=== PATIENT | male | born 1945 | race Caucasian/White ===

== ENCOUNTER 2016-09-04 09:31 | Emergency (ER) | payer MEDICARE, OTHER ==
[2016-09-04 11:04] VITALS: BP 158/94
[2016-09-04] MEDS ORDERED: Acetaminophen/HYDROcodone 325-10 MG Tab PO ONE (11:34)
--- NOTE | 2016-09-07 08:24 | ER ---
Date of Service: 09/04/2016 SUBJECTIVE: Neville presents to the emergency room with complaints of pain to his right distal ankle. The patient states that he was in his basement and apparently was walking and injured at [facility], however, he is unaware specifically of what happened. 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 The patient states that he has minimal sensation in the foot and ankle. Initially experienced very minor discomfort. He states that he noticed some weakness in the ankle as well as edema to the ankle. PAST MEDICAL HISTORY: 1. Dyslipidemia. 2. Hypertension. 3. Osteoarthritis. 4. History of chronic low back pain. 5. History of kidney stones. MEDICATIONS: 1. Tramadol. 2. Zocor. 3. Advil. 4. Hydrochlorothiazide. 5. Aspirin. ALLERGIES: Betadine. REVIEW OF SYSTEMS: The patient denies any injury other than was isolated to his right ankle. He does complain again of weakness to the joints. He states that he does have chronic paresthesia to the right lower extremity. PHYSICAL EXAMINATION: General: This is a 71-year-old male patient, who is in no acute distress. Vital Signs: Initially, blood pressure is 173/103. This was rechecked and was found to be 158/94, temperature is 36.6, pulse rate is 61, respiratory rate 16, and O2 saturations 97%. Skin: Warm, pink, and dry. Lungs: Clear to auscultation. Heart: Regular rate and rhythm. Musculoskeletal: He does have some crepitus in the area of the distal tibia/fibula. There is moderate amount of edema noted to the ankle joint. Neurovascular, circulation noted to the right foot and ankle. He does have evidence of foot drop. He does have lack of sensation to the foot and ankle on the right side. RADIOGRAPHIC DATA: Right ankle series was obtained. He did have evidence of a distal tibia/fibula fracture. No dislocation noted. The fractures do appear to be minimally displaced. HOSPITAL COURSE: The patient was placed in a posterior short leg splint to the right lower extremity. The patient had been given [place] 10/325 tablets prior to this. The patient did report improvement after the pain pill as well as following splinting. The patient tolerated this well. He remained stable in my care in the emergency room. ASSESSMENT: Right distal tibia-fibula fracture. PLAN: I did speak with Dr. Hernandez, the orthopedist on-call at [place]. He stated that the patient could either come down today and be evaluated or follow up in the clinic on Wednesday. I discussed this with the patient and his daughter. Patient's daughter states that the patient is extremely noncompliant. We did get him crutches to do crutch teaching and he was very weak, unable to use the crutches properly and was using his right lower extremity to help to get around as well. Decision was made then for the patient to travel to [facility] in [place] via private vehicle for further evaluation and treatment. The surgeon coming on to relieve Dr. Hernandez stated that he likely would operate either today or tomorrow. To note, I also spoke with Dr. Goss, the hospitalist, who stated that he would accept the patient in transfer and stated that the patient could be a direct admit. I did discuss doing preoperative lab studies, but he stated that they would perform these in [place]. All questions were answered. The patient did sign EMTALA form. MWK: 09/04/2016 13:14:24 MODL: 09/04/2016 20:45:55 /[id number]
== END 2016-09-04 11:45 | disposition short-term general hospital (02) ==
LOC: VM.ED 09:31
DX: S82.301A Unspecified fracture of lower end of right tibia, initial encounter for closed fracture (principal); S82.831A Other fracture of upper and lower end of right fibula, initial encounter for closed fracture; I10 Essential (primary) hypertension; M19.90 Unspecified osteoarthritis, unspecified site; E78.5 Hyperlipidemia, unspecified; Z87.442 Personal history of urinary calculi; Z88.8 Allergy status to other drugs, medicaments and biological substances; X58.XXXA Exposure to other specified factors, initial encounter; Y92.89 Other specified places as the place of occurrence of the external cause
CPT/HCPCS: 29515; 73610; 99284; A9270; 29505

== ENCOUNTER 2021-01-26 10:33 | Emergency (ER) | payer MEDICARE, OTHER ==
[2021-01-26] MEDS ORDERED: Sodium Chloride 0.9% 10 ML Syringe FLUSH PRN (12:01)
[2021-01-26 12:31] LABS: PTT,PARTIAL THROMBOPLSTIN TIME 22.6 SEC (25.6-32.8)
[2021-01-26 12:41] LABS: ANION GAP 11.6 mmol/L (5-15)
[2021-01-26 15:58] VITALS: BP 140/87; PULSE 80
== END 2021-01-26 13:10 | disposition home or self-care (01) ==
LOC: VM.ED 10:33
DX: R53.1 Weakness (principal); E78.00 Pure hypercholesterolemia, unspecified; I10 Essential (primary) hypertension; Z91.048 Other nonmedicinal substance allergy status; Z88.5 Allergy status to narcotic agent; Z79.82 Long term (current) use of aspirin; Z79.899 Other long term (current) drug therapy
CPT/HCPCS: 36415; 80053; 81001; 83605; 83735; 83880; 84100; 84145; 84484; 85025; 85610; 85730; 86140; 87040; 93005; 93010; 99285; 99285-25

== ENCOUNTER 2021-10-08 12:26 | Emergency (ER) | payer MEDICARE, OTHER ==
[2021-10-08 12:39] VITALS: BP 139/92; PULSE 72
[2021-10-08] MEDS: Orphenadrine 60 MG/2 ML Inj IM ONE (12:47)
[2021-10-08] MEDS: HYDROmorphone 1 MG/ML Syringe SUBCUT ONE (12:47)
== END 2021-10-08 13:18 | disposition home or self-care (01) ==
LOC: SUPCPDRO 12:26 → VM.ED 12:26
DX: S39.012A Strain of muscle, fascia and tendon of lower back, initial encounter (principal); E78.00 Pure hypercholesterolemia, unspecified; I10 Essential (primary) hypertension; Z88.8 Allergy status to other drugs, medicaments and biological substances; Z91.048 Other nonmedicinal substance allergy status; Z79.82 Long term (current) use of aspirin; Z79.899 Other long term (current) drug therapy
CPT/HCPCS: 96372; 99283; J1170; J2360